=== PATIENT | female | born 1995 | race Caucasian/White ===

== ENCOUNTER 2017-02-06 18:09 | Emergency (ER) | payer OTHER ==
[~2017-02-06] VITALS: Ht 162.6 cm; Wt 68.1 kg
[~2017-02-06 18:09] MED LIST: AMPH10CA3 PO; AMPH10TA2 PO; CHOL100010 PO; FLVHFA110 INH; PRLSR20 PO; SERT50TA PO
[2017-02-06 18:17] VITALS: TEMP 36.3; Ht 162.6 cm; Wt 68.1 kg
[2017-02-06] MEDS ORDERED: IUD (18:50)
[2017-02-06 19:49] LABS: URINE APPEARANCE CLEAR (CLEAR); URINE BILIRUBIN NEG (NEG); URINE COLOR YELLOW; URINE NITRITE POS (NEG); URINE PH 7.5 (4.5-7.5); URINE SPECIFIC GRAVITY 1.007 (1.000-1.030); UROBILINOGEN NEG (NEG)
[2017-02-06 19:53] LABS: MANUAL MICROSCOPIC REQUIRED? NO; REVIEW REQ? NO
[2017-02-06 19:54] LABS: PREG INTERNAL NEGATIVE QC NEG CLEAR BACKGROUND; PREG INTERNAL POSITIVE QC POS CONTROL LINE
[2017-02-06] MEDS ORDERED: SULFAMETHOXAZOLE/TRIMETHOPRIM DS 800/160MG TAB PO STA (20:16)
[2017-02-06] MEDS ORDERED: FLUC150T54 PO (20:25)
[2017-02-06] MEDS ORDERED: SULF800T23 PO (20:25)
--- NOTE | 2017-02-06 20:26 | EMERGENCY ROOM VISIT NOTE ---
ED Visit Note First contact with patient: 18:22 CHIEF COMPLAINT: Vaginal discharge x "a few months" HISTORY OF PRESENT ILLNESS: Patient is a 21-year-old female who presents to the emergency department for evaluation of vaginal discharge. She reports that she has had discharge for "sometime." She is sexually active, is not in a monogamous relationship, and does not always use a barrier method for protection. She has noted some intermittent burning with urination. She also notes that she had discomfort which she describes as a sharp vaginal pain when she was sexually active with her boyfriend 2 weeks ago. She noted some slight because discharge after intercourse that time. Otherwise she has had vaginal discharge for a couple of months, sometimes it is clear, sometimes it is white and a cheek, sometimes it is green. She thinks that she has a yeast infection, which she has had in the past, but she was talking with her sister yesterday and became concerned that her symptoms could be related to Trichomonas. She does have an IUD in place, it has been present for 2 years, she denies any problems or complications with the IUD. She reports that she had unprotected sex with new partners about 3-4 months ago, she is not aware of any specific sexually transmitted infection that she could've been exposed to. She denies increased frequency of urination or pain with urination. There is no history of vaginal infections or STIs. She denies abdominal pain, nausea, or vomiting. LMP 3 weeks ago. REVIEW OF SYSTEMS: Review of systems as per HPI. All other systems reviewed were negative. 10 systems reviewed. PMH: Electronic medical records are reviewed and summarized as above/below. See Problem List. SOCIAL HISTORY: Patient is a college student. She lives locally with her family when she is home, and an apartment when she is away at school. PHYSICAL EXAM: Vital Signs: Reviewed Nurse's notes. CONSTITUTIONAL: Patient is a pleasant, well-appearing 21-year-old white female who is awake and alert and in no acute distress. CARDIOVASCULAR: Regular rate and rhythm. RESPIRATORY: Breath sounds equal and clear to auscultation . INTEGUMENTARY: No lesions or rash, normal skin turgor. LYMPH: No lymphadenopathy. ABDOMEN: Soft, non-tender, no hepatosplenomegaly, or masses. PELVIC EXAM: VAGINA: White physiologic discharge. CERVIX: Closed, pink, healthy in appearance, nontender, no discharge. IUD strings noted. UTERUS: Normal size, nontender. No CMT. ADNEXAE: No masses or tenderness. VULVA: No ulcers, vesicles, or atrophy. A nurse was present as a bookmaker map during the examination. EMERGENCY DEPARTMENT COURSE: The patient was seen and evaluated as above. Pelvic exam was performed and cultures were obtained. Urinalysis was also collected, urine test was negative. Vaginal swab for Trichomonas was negative, vaginal Gram stain did not note any clue cells. Vaginal culture and cervical swab for Chlamydia and gonorrhea are pending. Urinalysis noted trace occult blood, positive nitrates, positive leuk esterase and 4+ bacteria. Given her symptoms, urine culture was ordered and is pending. Her exam appears more consistent with a yeast infection, and she was treated with Diflucan 150mg orally in the ED. Pending urine culture, she'll also be placed on Bactrim DS twice a day 7 days. Differential diagnoses entertained included UTI, vaginitis , yeast infection, PID, cervicitis, among others. She was made aware that we' ll contact her if her cultures require treatment with any additional medications. She was otherwise encouraged to follow-up with her chief librarian circulation department for further care and management. Patient was discharged home with her mother in good condition. Medication reconciliation: I attest that I have personally reviewed the patient' s current medication list. Blood pressure screening : Patient was found to have normal blood pressure on screening and does not require follow-up. Problem List Medical Problems: (1) ADHD Status: Chronic (2) Anxiety Status: Chronic (3) Asthma Status: Chronic (4) GERD (gastroesophageal reflux disease) Status: Chronic Current/Historical Medications Scheduled Fluconazole (Diflucan), 150 MG PO DIRECTED Sulfa/Trimethoprim (Bactrim Ds 800MG/160MG), 1 TAB PO BID Scheduled PRN Fluticasone Propionate (Flovent Hfa), 2 PUFFS INH BID PRN for PRN Miscellaneous Medications [Iud] Allergies Coded Allergies: Prednisolone (Verified Allergy, Unknown, SWOLLEN EYES, 02/06/17) Sulfacetamide (Verified Allergy, Unknown, SWOLLEN EYES, 02/06/17) Thimerosal (Verified Allergy, Unknown, SWOLLEN EYES, 02/06/17) Vital Signs Date Time Temp Pulse Resp B/P (MAP) Pulse Ox O2 Delivery O2 Flow Rate FiO2 02/06/17 18:17 36.3 97 18 119/82 97 Room Air Laboratory Results Test 02/06/17 18:45 02/06/17 19:42 Urine Color YELLOW Urine Appearance CLEAR (CLEAR) Urine pH 7.5 (4.5-7.5) Urine Specific [place] 1.007 (1.000-1.030) Urine Protein NEG (NEG) Urine Glucose (UA) NEG (NEG) Urine Ketones NEG (NEG) Urine Occult Blood TRACE (NEG) Urine Nitrite POS (NEG) Urine Bilirubin NEG (NEG) Urine Urobilinogen NEG (NEG) Urine Leukocyte Esterase TRACE (NEG) Urine WBC (Auto) 1-5 /hpf (0-5) Urine RBC (Auto) 0-4 /hpf (0-4) Urine Hyaline Casts (Auto) 0 /lpf (0-5) Urine Epithelial Cells (Auto) 5-10 /lpf (0-5) Urine Bacteria (Auto) 4+ (NEG) Urine Test NEG (NEG) Date/Time Source Procedure Growth Status 02/06/17 18:45 Vaginal Swab Trichomonas Preparation - Final Complete Medications Administered Medications (Trade) Dose Ordered Sig/Julián Route Start Time Stop Time Status Last Admin Dose Admin Fluconazole (Diflucan Tab) 150 mg NOW ONCE PO 02/06/17 20:30 02/06/17 20:31 DC 02/06/17 20:24 150 MG Trimethoprim/ Sulfamethoxazole (Septra Ds 800/ 160MG Tab) 1 tab NOW STAT PO 02/06/17 20:16 02/06/17 20:18 DC 02/06/17 20:23 1 TAB Departure Information Impression Primary Impression: Vaginal discharge Prescriptions Fluconazole (DIFLUCAN) 150 Mg Tab 150 MG PO DIRECTED, #2 TAB TAKE ONE TABLET X ONE DOSE, MAY REPEAT IN 3 DAYS IF SYMPTOMS PERSIST. Prov: Ne Smiley PA 02/06/17 Sulfa/Trimethoprim (Bactrim Ds 800MG/160MG) Tab 1 TAB PO BID, #14 TAB Prov: Ne Smiley PA 02/06/17 Referrals Roshni Pollock PA-C (PCP) Patient Instructions My [facility] Additional Instructions Trimethoprim-Sulfamethoxazole(Bactrim DS): Take one pill twice daily for 7 days for your urine infection. All antibiotics can cause diarrhea. If this occurs and you feel worse or it does not resolve in 1-2 days follow up with your doctor or return to the Emergency Department as this could be signs of serious underlying problems. Any medication can cause an allergic reaction, stop the pills immediately and return to the ER for rash, hives, breathing difficulties, or swelling. May repeat Diflucan in 3 days if symptoms persist. Ibuprofen(Motrin, Advil): may be used for fever or pain. Use 600mg every six hours as needed. Take with food. Avoid using more than 2400mg in a 24 hour period. Do not use 2400mg per day for more than three consecutive days without physician direction. Prolonged inappropriate use can lead to stomach upset or ulcers. This is available over the counter and typically comes in 200mg tablets. (AND/OR) Acetaminophen(Tylenol): may be used for fever or pain. Use 1000mg every eight hours as needed. Avoid using more than 3000mg in a 24 hour period. This is available over the counter. Read all the package inserts or medication information paperwork provided. If you have any questions or concerns call your primary provider, pharmacist or the ER for assistance. Rest and drink plenty of fluids. Continue current medications. Return to the ER immediately for worsening or persistent abdominal pain, vomiting, fevers, back or flank pain, worsening of your condition, or as needed. We will contact you in 2-3 days if the remaining test require treatment. Follow up with your chief librarian circulation department for further care and management if symptoms persist.
[2017-02-06] MEDS ORDERED: FLUCONAZOLE 50 MG TAB PO ONE (20:30)
[2017-02-06 20:53] VITALS: BP 118/68; PULSE 80; O2SAT 100
--- NOTE | 2017-02-08 13:42 | Pharmacy Progress Note ---
ED Pharmacist Culture FollowUp Date of Service: Feb 08, 2017. Patient was sent home with a prescription for bactrim and fluconazole, which should cover the E. coli growing from the patient's urine culture and the eliane growing in the genital culture. Gardnerella also growing from patients genital culture. The patient reports still having some urinary symptoms. I therefore called in a prescription for flagyl 500mg BID X 7 days to [facility] and informed her to call us with any question or concerns.
[2017-02-09 00:04] LABS: CHLAMYDIA TRACH RNA*** NOT DETECTED (NOT DETECTED); GC (NEIS GONORRHOEAE)RNA** NOT DETECTED (NOT DETECTED)
== END 2017-02-06 20:54 | disposition home or self-care (01) ==
LOC: C.EDB 18:09 → C.EDC 20:54
DX: N89.8 Other specified noninflammatory disorders of vagina (principal); Z97.5 Presence of (intrauterine) contraceptive device; F90.9 Attention-deficit hyperactivity disorder, unspecified type; J45.909 Unspecified asthma, uncomplicated